=== PATIENT | female | born 1995 | race Caucasian/White ===

== ENCOUNTER 2019-01-26 14:41 | Emergency (ER) | payer OTHER ==
[~2019-01-26] VITALS: Ht 170.2 cm; Wt 90.7 kg
[2019-01-26 14:51] VITALS: BP 140/74
--- NOTE | 2019-01-26 15:07 | NUR ---
PT TO X-RAY.
--- NOTE | 2019-01-26 15:07 | NUR ---
BIB SELF C/ O LEFT ANKLE AND LEFT FOOT PAIN S/P MECHANICAL TRIP AND FALL MOLDED [employer]SEM[employer]ER. PT DENIES LOC. PAIN EXACERBATED BY WEIGHT BEARING. BREATHING EVEN AND UNLABORED. SKIN WARM, PINK, AND DRY.
[2019-01-26 15:46] VITALS: BP 132/67
--- NOTE | 2019-01-26 15:47 | NUR ---
Patient discharged with v/s stable. Written and verbal after care instructions given and explained. Patient alert, oriented and verbalized understanding of instructions. Ambulatory with steady gait W/ CRUTCHES. All questions addressed prior to discharge. ID band removed. Patient advised to follow up with PMD. Rx of IBUPROFEN given. Patient educated on indication of medication including possible reaction and side effects. Opportunity to ask questions provided and answered.
== END 2019-01-26 15:47 | disposition home or self-care (01) ==
LOC: MED 14:41
DX: S93.402A Sprain of unspecified ligament of left ankle, initial encounter (principal); J45.909 Unspecified asthma, uncomplicated; W01.0XXA Fall on same level from slipping, tripping and stumbling without subsequent striking against object, initial encounter; Y93.01 Activity, walking, marching and hiking; Y92.89 Other specified places as the place of occurrence of the external cause; Y99.8 Other external cause status
CPT/HCPCS: 73610; 73630; 99283